=== PATIENT | female | born 1935 | race Caucasian/White ===

== ENCOUNTER 2019-06-08 23:00 | Emergency (ER) | payer OTHER ==
[~2019-06-08] VITALS: Ht 147.3 cm; Wt 59.0 kg
[2019-06-08] MEDS ORDERED: TOPROL XL50 M1 (23:30)
[2019-06-08] MEDS ORDERED: DIOVAN160 M1 (23:31)
[2019-06-08] MEDS ORDERED: VALACYCLOVIR HCL (23:32)
[2019-06-08] MEDS ORDERED: SYNTHROID75 MCG (23:33)
[2019-06-09] MEDS ORDERED: MOBIC15 MG PO (02:22)
== END 2019-06-09 02:48 | disposition home or self-care (01) ==
LOC: ER 23:00
DX: I16.0 Hypertensive urgency (principal); I10 Essential (primary) hypertension; B02.9 Zoster without complications

== ENCOUNTER 2020-01-24 09:13 | Emergency (ER) | payer OTHER ==
[~2020-01-24] VITALS: Ht 144.8 cm; Wt 58.5 kg
[~2020-01-24 09:13] MED LIST: DIOVAN160 M1; MOBIC15 MG PO; SYNTHROID75 MCG; TOPROL XL50 M1; VALACYCLOVIR HCL
[2020-01-24] MEDS ORDERED: RAMIPRIL5 MG (09:50)
== END 2020-01-24 12:30 | disposition home or self-care (01) ==
LOC: ER 09:13
DX: T78.3XXA Angioneurotic edema, initial encounter (principal)

== ENCOUNTER 2022-12-19 10:28 | Emergency (ER) | payer OTHER ==
[~2022-12-19] VITALS: Ht 172.7 cm; Wt 70.3 kg
[~2022-12-19 10:28] MED LIST changes: +RAMIPRIL5 MG
== END 2022-12-19 13:17 | disposition home or self-care (01) ==
LOC: ER 10:28
DX: S93.492A Sprain of other ligament of left ankle, initial encounter (principal); Z88.8 Allergy status to other drugs, medicaments and biological substances; M19.90 Unspecified osteoarthritis, unspecified site; I10 Essential (primary) hypertension